=== PATIENT | male | born 1955 | race African-American/Black ===

== ENCOUNTER 2024-09-10 10:47 | Inpatient (IN) | payer OTHER ==
[2024-09-10] MEDS: ETOMIDATE 40 MG/20 ML VIAL IVPUSH ONE (10:57)
[2024-09-10] MEDS: SUCCINYLCHOLINE CHLORIDE 200 MG/10 ML VIAL IVPUSH ONE (10:59)
[2024-09-10] MEDS: FENTANYL NS IVPB 500 MCG/100 ML BAG IVPB SCH ×2 (11:15→13:16)
[2024-09-10] MEDS: NOREPINEPHRINE BITARTRATE 4,000 MCG in DEXTROSE 5%-WATER - 496 ML IV SCH (11:15)
[2024-09-10] MEDS ORDERED: MIDAZOLAM HCL 2 MG/2 ML SINGLE DOSE VIAL ONE (11:25)
[2024-09-10] MEDS ORDERED: FENTANYL IVPB 500 MCG/100 ML BAG IVPB SCH (11:30)
[2024-09-10] MEDS: MIDAZOLAM HCL 5 MG/1 ML Single Dose Vial IVPUSH ONE ×2 (11:30→13:18)
[2024-09-10] MEDS ORDERED: FENTANYL NS IVPB 500 MCG/100 ML BAG IVPB SCH ×2 (11:45→11:53)
[2024-09-10] MEDS ORDERED: FENTANYL NS IVPB 500 MCG/100 ML BAG IVPB ONE (11:54)
[2024-09-10 11:57] VITALS: BMI 20.2
[2024-09-10] MEDS: MIDAZOLAM IN 0.9 % SOD.CHLORID 100 MG/100 ML PLAST..BAG IVPB SCH (12:15)
[2024-09-10 12:40] LABS: VENOUS BASE EXCESS -14.4 mmol/L (-2-2); VENOUS O2 SATURATION 64.9 % (70-80)
[2024-09-10 12:42] LABS: ABSOLUTE IMMATURE GRANULOCYTES 0.16 x10^3/uL (0.0-0.031); BASOPHILS # 0.03 x10^3/uL (0.01-0.08); EOSINOPHIL % 0.1 % (0.8-7.0); EOSINOPHILS # 0.01 x10^3/uL (0.04-0.54); HEMATOCRIT 42.8 % (40.1-51.0); HEMOGLOBIN 12.5 g/dL (13.7-17.5); MCHC 29.2 g/dl (32.3-36.5); MEAN CELL VOLUME 101.7 fl (79.0-92.2); MEAN PLT VOLUME 10.4 fl (9.4-12.4); MONOCYTE # 1.06 x10^3/uL (0.30-0.82); MONOCYTE % 7.3 % (5.3-12.2); PLATELET COUNT 208 x10^3/uL (163-337); RDW 13.6 % (12.2-16.4)
[2024-09-10] MEDS: LACTATED RINGERS SOLUTION 1000 ML INFUS.BAG IV ONE (12:43)
[2024-09-10] MEDS: PIPERACILLIN/TAZOB 3.375 GM 3.375 GM in DEXTROSE 5%-WATER - 50 ML IVPB ONE (12:44)
[2024-09-10 12:46] LABS: VENOUS PH 7.002 (7.310-7.410)
[2024-09-10 12:47] LABS: VENOUS PCO2 73.8 mmHg (38-52)
[2024-09-10 12:48] LABS: INR 1.28 (0.83-1.09); PROTHROMBIN TIME (PATIENT) 13.9 SEC (9.7-13.0)
[2024-09-10 12:51] LABS: ACTIVATED PTT 28.7 SECONDS (25.2-36.5)
[2024-09-10] MEDS ORDERED: MIDAZOLAM IN 0.9 % SOD.CHLORID 1 MG/1 ML PLAST..BAG ONE (12:53)
[2024-09-10 12:57] LABS: EPI CELLS >36 /uL (0-25.1); HYALINE CASTS 15 /uL (0-3.1); URINE APPEARANCE TURBID; URINE BACTERIA 197 /uL (0-1359); URINE BILIRUBIN NEGATIVE (NEGATIVE); URINE COLOR YELLOW; URINE GLUCOSE (UA) NEGATIVE (NEGATIVE); URINE KETONE NEGATIVE (NEGATIVE); URINE LEUK ESTERASE NEGATIVE (NEGATIVE); URINE NITRITE NEGATIVE (NEGATIVE); URINE PROTEIN 3+ (NEGATIVE); URINE RBC 33 /uL (0-23.9)
[2024-09-10 13:07] LABS: ARTERIAL BLD GAS O2 SATURATION 99.7 % (95-98); ARTERIAL BLOOD GAS BASE EXCESS -12.2 mmol/L (-2-2); ARTERIAL BLOOD GAS PO2 426.1 mmHg (80-100); O2 CONTENT 2.02 % vol
[2024-09-10 13:09] LABS: POTASSIUM 3.2 mmol/L (3.5-5.1)
[2024-09-10 13:10] LABS: ARTERIAL BLOOD GAS pH 7.134 (7.350-7.450)
[2024-09-10] MEDS: AZITHROMYCIN IVPB 500 MG in DEXTROSE 5%-WATER - 250 ML IVPB ONE (13:10)
[2024-09-10] MEDS: VANCOMYCIN 1,000 MG in DEXTROSE 5%-WATER - 250 ML IVPB ONE (13:10)
[2024-09-10 13:12] LABS: LACTIC ACID 11.6 mmol/L (0.4-2.0)
[2024-09-10 13:12] LABS: BLOOD UREA NITROGEN 22.8 mg/dL (7-18); CALCIUM 7.4 mg/dL (8.5-10.1)
[2024-09-10 13:14] LABS: CREATININE 1.5 mg/dL (0.55-1.3)
[2024-09-10] MEDS: MIDAZOLAM HCL 2 MG/2 ML SINGLE DOSE VIAL IVPUSH ONE (13:15)
[2024-09-10 13:16] LABS: BILIRUBIN,TOTAL 0.6 mg/dL (0.2-1)
[2024-09-10 13:19] LABS: URINE WBC 99.5 /uL (0-25.8)
[2024-09-10] MEDS ORDERED: HEPARIN NA (PORCINE) 5,000 UNITS/ML 1ML VIAL IVPUSH PRN ×2 (13:58)
[2024-09-10] MEDS: HEPARIN NA (PORCINE) 5,000 UNITS/ML 1ML VIAL IVPUSH ONE (14:06)
[2024-09-10] MEDS: HEPARIN INFUSION - 25,000 UNITS/500 ML INFUS.BAG IVPB SCH (14:07)
[2024-09-10 14:19] VITALS: RESP 18
[2024-09-10] MEDS ORDERED: CALCIUM GLUC IN NACL, ISO-OSM 1 GM/50 ML BAG IVPB ONE (14:36)
[2024-09-10] MEDS: CALCIUM GLUC IN NACL, ISO-OSM 1 GM/50 ML BAG IVPB ONE (14:42)
[2024-09-10] MEDS ORDERED: VASopressin 40 UNITS/100 ML BAG IV SCH (14:45)
[2024-09-10 15:33] VITALS: TEMP 98.2
[2024-09-10 15:36] VITALS: BP 107/64; PULSE 106
[2024-09-10] MEDS ORDERED: MUPIROCIN 2% TOPICAL OINTMENT FOR DECOLONIZATION NS SCH (22:00)
[2024-09-10] MEDS ORDERED: CHLORHEXIDINE GLUCONATE 4% CLEANSER FOR DECOLONIZATION TP SCH (22:00)
== END 2024-09-10 15:48 | disposition short-term general hospital (02) | DRG 280 ==
LOC: JER 10:47 → JERBED 11:40
PROVIDERS: ADMIT Internal Medicine Pulmonary Disease; ATTEND Internal Medicine Pulmonary Disease
PROC: 5A1935Z Respiratory Ventilation, Less than 24 Consecutive Hours (ICD-10-PCS; principal; 2024-09-10)
PROC: 0BH17EZ Insertion of Endotracheal Airway into Trachea, Via Natural or Artificial Opening (ICD-10-PCS; 2024-09-10)
PROC: 05HM33Z Insertion of Infusion Device into Right Internal Jugular Vein, Percutaneous Approach (ICD-10-PCS; 2024-09-10)
DX: I21.3 ST elevation (STEMI) myocardial infarction of unspecified site (principal); J18.9 Pneumonia, unspecified organism; J96.01 Acute respiratory failure with hypoxia; I50.9 Heart failure, unspecified; F17.210 Nicotine dependence, cigarettes, uncomplicated
CPT/HCPCS: 0241U-QW; 36415; 36600; 70450-TC; 71045-TC-FY; 80053; 81003; 82803; 83605; 83880; 84484; 85025; 85610; 85730; 86850; 86900; 86901; 87040; 87086; 93005; 93010; 99291; J1644